=== PATIENT | female | born 1935 | race Caucasian/White ===

== ENCOUNTER 2017-10-24 05:51 | Day surgery (SDC) | payer OTHER ==
[~2017-10-24] VITALS: Ht 152.4 cm; Wt 49.5 kg
[~2017-10-24 05:51] MED LIST: ACET-66 PO; ALEN70TA48 PO; AMLO-512 PO; CYCLOPENTOLATE HCL 2% 2 ML OPHTHALMIC SOLUTION ONE; FLUT16H NASAL; KETOROLAC TROMETHAMINE 0.5% 5 ML OPHTHALMIC SOLUTION ONE; MECL-111 PO; MOXIFLOXACIN HCL 0.5% 3 ML OPHTHALMIC SOLUTION ONE; PHENYLEPHRINE HCL 2.5% 2 ML OPHTHALMIC SOLUTION ONE; RINGERS SOLUTION,LACTATED 500 ML IV ONE; TETRACAINE HCL/PF 0.5% 4 ML OPHTHALMIC SOLUTION ONE; VITAD1000 PO
[2017-10-24] MEDS ORDERED: RINGERS SOLUTION,LACTATED 500 ML IV ONE (06:00)
[2017-10-24] MEDS ORDERED: SUCR1TAB PO (06:21)
[2017-10-24] MEDS: CYCLOPENTOLATE HCL 2% 2 ML OPHTHALMIC SOLUTION OD SCH ×3 (06:51→07:04)
[2017-10-24] MEDS: MOXIFLOXACIN HCL 0.5% 3 ML OPHTHALMIC SOLUTION OD SCH ×3 (06:51→07:04)
[2017-10-24] MEDS: TETRACAINE HCL/PF 0.5% 4 ML OPHTHALMIC SOLUTION OD SCH ×3 (06:51→07:04)
[2017-10-24] MEDS: PHENYLEPHRINE HCL 2.5% 2 ML OPHTHALMIC SOLUTION OD SCH ×3 (06:51→07:04)
[2017-10-24] MEDS: KETOROLAC TROMETHAMINE 0.5% 5 ML OPHTHALMIC SOLUTION OD SCH ×3 (06:51→07:04)
[2017-10-24] MEDS ORDERED: FentaNYL CITRATE-PF 100 MCG/2 ML VIAL IVP ONE (12:00)
[2017-10-24] MEDS ORDERED: MIDAZOLAM HCL 2 MG/2 ML VIAL IVP ONE (12:00)
== END 2017-10-24 09:10 | disposition home or self-care (01) ==
LOC: SURGERY 05:51
PROVIDERS: ATTEND Ophthalmology
DX: H25.11 Age-related nuclear cataract, right eye (principal); I10 Essential (primary) hypertension; Z90.89 Acquired absence of other organs; Z90.49 Acquired absence of other specified parts of digestive tract; Z79.82 Long term (current) use of aspirin; Z98.890 Other specified postprocedural states; Z79.899 Other long term (current) drug therapy
CPT/HCPCS: 66984; 93005; C1780; J2250; J3010; J7120

== ENCOUNTER 2017-12-17 05:43 | Day surgery (SDC) | payer OTHER ==
[~2017-12-17] VITALS: Ht 152.4 cm; Wt 50.0 kg
[~2017-12-17 05:43] MED LIST changes: -CYCLOPENTOLATE HCL 2% 2 ML OPHTHALMIC SOLUTION ONE; -KETOROLAC TROMETHAMINE 0.5% 5 ML OPHTHALMIC SOLUTION ONE; -MOXIFLOXACIN HCL 0.5% 3 ML OPHTHALMIC SOLUTION ONE; -PHENYLEPHRINE HCL 2.5% 2 ML OPHTHALMIC SOLUTION ONE; -RINGERS SOLUTION,LACTATED 500 ML IV ONE; +SUCR1TAB PO; -TETRACAINE HCL/PF 0.5% 4 ML OPHTHALMIC SOLUTION ONE
[2017-12-17] MEDS ORDERED: PILOCARPINE HCL 4% 15 ML OPHTHALMIC SOLUTION OS ONE (05:44)
[2017-12-17] MEDS ORDERED: FentaNYL CITRATE-PF 100 MCG/2 ML VIAL IVP ONE (05:44)
[2017-12-17] MEDS ORDERED: MIDAZOLAM HCL 2 MG/2 ML VIAL IVP ONE (05:44)
[2017-12-17] MEDS ORDERED: EPINEPHrine 1:1,000 [1 MG/ML] AMP SQ ONE (05:44)
[2017-12-17] MEDS ORDERED: HYALURONATE SODIUM 12 MG/ML 0.8 ML SYRINGE IO ONE (05:44)
[2017-12-17] MEDS ORDERED: POVIDONE-IODINE 10% 15 ML SOLUTION UD TP ONE (05:44)
[2017-12-17] MEDS ORDERED: METOPROLOL TARTRATE 5 MG/5 ML VIAL IVP ONE (05:44)
[2017-12-17] MEDS ORDERED: MOXIFLOXACIN HCL 0.5% 3 ML OPHTHALMIC SOLUTION ONE (05:59)
[2017-12-17] MEDS ORDERED: KETOROLAC TROMETHAMINE 0.5% 5 ML OPHTHALMIC SOLUTION ONE (05:59)
[2017-12-17] MEDS ORDERED: PHENYLEPHRINE HCL 2.5% 2 ML OPHTHALMIC SOLUTION ONE (06:00)
[2017-12-17] MEDS ORDERED: RINGERS SOLUTION,LACTATED 500 ML IV ONE ×2 (06:00→06:01)
[2017-12-17] MEDS ORDERED: CYCLOPENTOLATE HCL 1% 2 ML OPHTHALMIC SOLUTION ONE (06:00)
[2017-12-17] MEDS ORDERED: TROPICAMIDE 1% 2 ML OPHTHALMIC SOLUTION ONE (06:01)
[2017-12-17] MEDS ORDERED: TETRACAINE HCL/PF 0.5% 4 ML OPHTHALMIC SOLUTION ONE (06:44)
[2017-12-17] MEDS: MOXIFLOXACIN HCL 0.5% 3 ML OPHTHALMIC SOLUTION OS SCH ×3 (06:52→07:02)
[2017-12-17] MEDS: TROPICAMIDE 1% 2 ML OPHTHALMIC SOLUTION OS SCH ×3 (06:52→07:02)
[2017-12-17] MEDS: PHENYLEPHRINE HCL 2.5% 2 ML OPHTHALMIC SOLUTION OS SCH ×3 (06:53→07:02)
[2017-12-17] MEDS: CYCLOPENTOLATE HCL 1% 2 ML OPHTHALMIC SOLUTION OS SCH ×3 (06:53→07:02)
[2017-12-17] MEDS: KETOROLAC TROMETHAMINE 0.5% 5 ML OPHTHALMIC SOLUTION OS SCH ×3 (06:53→07:02)
[2017-12-17] MEDS ORDERED: DICLOFENAC SODIUM 0.1% 2.5 ML OPHTHALMIC SOLUTION OS SCH (07:30)
[2017-12-17] MEDS ORDERED: TETRACAINE HCL/PF 0.5% 4 ML OPHTHALMIC SOLUTION OS ONE (07:30)
[2017-12-17] MEDS ORDERED: ACETAMINOPHEN 325 MG TABLET PO PRN (07:30)
== END 2017-12-17 08:45 | disposition home or self-care (01) ==
LOC: SURGERY 05:43
PROVIDERS: ATTEND Ophthalmology
DX: H25.12 Age-related nuclear cataract, left eye (principal); I10 Essential (primary) hypertension; M81.0 Age-related osteoporosis without current pathological fracture; G89.29 Other chronic pain
CPT/HCPCS: 66984; 93005; C1780; J2250; J3010; J3490; J7120; J0171